=== PATIENT | female | born 1990 | race African-American/Black ===

== ENCOUNTER 2020-05-06 20:44 | Emergency (ER) | payer SELFPAY ==
[~2020-05-06] VITALS: Ht 165.1 cm; Wt 90.0 kg
[2020-05-06 21:07] VITALS: BP 136/72
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
[2020-05-06 21:23] LABS: CLARITY,URINE BLOODY; COLOR,URINE RED
[2020-05-06 21:24] LABS: RBC,URINE TNTC /HPF (0-2)
[2020-05-06 21:25] LABS: BACTERIA,URINE MODERATE /HPF (0-FEW); SQUAMOUS EPITHELIAL CELL,UR MOD /LPF
[2020-05-06 21:29] LABS: BASO # 0.1 x10^3/uL (0.0-0.2); BASO % 1 % (0-3); EOS # 0.1 x10^3/uL (0.0-0.7); EOS % 1 % (0-3); HEMATOCRIT 39.1 % (36.0-47.0); HEMOGLOBIN 12.4 g/dL (12.0-15.5); LYMPH # 2.3 x10^3/uL (1.0-4.8); LYMPH % 25 % (24-48); MEAN CORPUSCULAR HEMOGLOBIN 24 pg (25-35); MEAN CORPUSCULAR HGB CONC 32 g/dL (31-37); MEAN CORPUSCULAR VOLUME 75 fL (79-100); MONO # 0.9 x10^3/uL (0.0-1.1); MONO % 9 % (0-9); NEUT % 65 % (31-73); PLATELET COUNT 252 x10^3/uL (140-400); WHITE BLOOD COUNT 9.3 x10^3/uL (4.0-11.0)
[2020-05-06] MEDS ORDERED: ACETAMINOPHEN 500 MG TABLET PO ONE (21:30)
[2020-05-06 21:45] LABS: CALCIUM 8.8 mg/dL (8.5-10.1); CREATININE 0.7 mg/dL (0.6-1.0); GFR 119.7; POTASSIUM 3.6 mmol/L (3.5-5.1)
--- NOTE | 2020-05-06 21:58 | RAD ---
Exam: Ultrasound pelvis Indication: Vaginal bleeding Technique: Real-time grayscale and color Doppler images of the pelvis were obtained by the department sign erector. Comparisons: None FINDINGS: Uterus measures 8.1 x 4.3 x 3.9 cm. Endometrium is 7 mm in thickness. Right ovary measures 2.9 x 1.7 x 1.7 cm. Left ovary measures 2.9 x 1.8 x 1.6 cm. Trace free fluid in the cul-de-sac. IMPRESSION: 1. No pole, gestational sac or yolk sac identified. Intrauterine is not confirmed. Differential considerations include an early IUP, failed IUP or nonvisualized ectopic . Recommend correlation with serial beta hCG measurements and short-term follow-up ultrasound. 2. Trace free fluid at the cul-de-sac, nonspecific. Electronically signed by: Gracie Veronica MD (05/06/2020 9:55 PM) [id number]
[2020-05-06] MEDS ORDERED: KETOROLAC 30 MG/ML VIAL. IM ONE (22:15)
[2020-05-06 22:32] LABS: PLT ESTIMATE ADEQUATE (ADEQUATE)
[2020-05-06 22:34] LABS: ANISOCYTOSIS MOD; HYPOCHROMIA SLIGHT
[2020-05-08 20:08] LABS: GC PROBE Negative (Negative)
== END 2020-05-06 22:28 | disposition home or self-care (01) ==
LOC: ER 20:44
DX: O46.91 Antepartum hemorrhage, unspecified, first trimester (principal); M54.5 Low back pain; G89.11 Acute pain due to trauma; R10.30 Lower abdominal pain, unspecified; V89.2XXA Person injured in unspecified motor-vehicle accident, traffic, initial encounter; Y92.488 Other paved roadways as the place of occurrence of the external cause; Y93.89 Activity, other specified; Y99.8 Other external cause status
CPT/HCPCS: 36415; 76830; 76856; 80048; 81001; 84702; 85025; 86850; 86900; 86901; 87086; 87491; 87591; 96372; 99284; J1885